=== PATIENT | female | born 1945 | race Caucasian/White ===

== ENCOUNTER 2017-04-06 11:23 | Outpatient (CLI) | payer OTHER | END 2017-04-06 11:29 | disposition home or self-care (01) | LOC: RAD 501 11:23 | DX: M54.5 Low back pain (principal) ==

== ENCOUNTER → 2020-12-10 14:29 | Outpatient (CLI) | payer OTHER | END | disposition home or self-care (01) | LOC: NUCLEAR 12-07 13:45 | PROVIDERS: ATTEND Internal Medicine Rheumatology | DX: M81.0 Age-related osteoporosis without current pathological fracture (principal) ==